=== PATIENT | male | born 1990 | race Two or more races ===

== ENCOUNTER 2021-06-03 22:32 | Emergency (ER) | payer MEDICAID ==
[~2021-06-03] VITALS: Ht 152.4 cm; Wt 59.3 kg
[2021-06-03] MEDS ORDERED: NEOMY/BACITR/POLYMYXIN OINT PACKET. TP ONE (23:45)
[2021-06-03] MEDS ORDERED: LIDOCAINE 2%/EPI 1:100,000 20 ML VIAL. INJ ONE (23:45)
--- NOTE | 2021-06-03 23:57 | PHYS DOC ---
Past Medical History Past Medical History: No Pertinent History Past Surgical History: No Surgical History Smoking Status: Current Every Day Smoker Alcohol Use: None Drug Use: None General Adult EDM: Chief Complaint: LACERATION/AVULSION HPI: HPI: Patient is a 31 year old male who presents to the ED with 3cm horizontal laceration on his left wrist. Patient does not speak Welsh and his significant other offered to translate. Patients SO states that the patient cut himself with a supervisor transferring and boxing while he was crafting slingshots and does not have any other associated symptoms. Review of Systems: Review of Systems: Constitutional: Denies fever or chills Integument: 3inch horizontal laceration left wrist, no rashes noted Complete systems were reviewed and found to be within normal limits, except as documented in this note. Heart Score: C/O Chest Pain: N/A Current Medications: Current Medications Medications (Trade) Dose Ordered Sig/Harrison Start Time Stop Time Status Last Admin Dose Admin Lidocaine/ Epinephrine (LIDOCAINE 2%-EPI 1:100,000 multi-dose) 20 ml 1X ONCE 06/03/21 23:45 06/03/21 23:46 DC Neomycin/ Polymyxin/ Bacitracin (Triple Antibiotic Ointment) 1 pkt 1X ONCE 06/03/21 23:45 06/03/21 23:46 DC Nifedipine (Procardia Xl) 30 mg 1X ONCE 06/04/21 00:00 06/04/21 00:01 Allergies: Allergies: Allergies Coded Allergies Type Severity Reaction Last Updated Verified No Known Drug Allergies 06/03/21 No Physical Exam: PE: Constitutional: Well developed, well nourished, patient is in significant pain, non-toxic appearance HENT: Normocephalic, atraumatic Eyes: conjunctiva normal, no discharge Neck: Normal range of motion, no tenderness, Lungs & Thorax: No respiratory distress, equal chest rise and fall Abdomen: Soft, no tenderness Skin: warm, dry, no rash Extremities: 3 inch laceration on left wrist, limited ROM, neurovascular function intact, tender to palpation Neurologic: Alert and oriented X 3, no focal deficits noted Psychologic: Affect normal, judgment normal Current Patient Data: Vital Signs: Vital Signs Date Time Temp Pulse Resp B/P (MAP) Pulse Ox O2 Delivery O2 Flow Rate FiO2 06/03/21 23:25 97.9 80 16 138/89 (105) 99 Room Air 97.9 EKG: EKG: [] Radiology/Procedures: Radiology/Procedures: [] Course & Med Decision Making: Course & Med Decision Making Patient presented to the ED with a 3inch laceration on his left wrist. Wound was cleaned, anesthetized and sutured appropriately. Bandage, antibiotic ointment and tetanus vaccine were applied /administered. Patient stable for discharge with outpatient follow-up with PCP. Discussed findings and plan with patient, who acknowledges understanding and agreement. Margarita Disclaimer: Margarita Disclaimer: This electronic medical record was generated, in whole or in part, using a voice recognition dictation system. Laceration/Wound Repair Progress Verbal consent obtained. Time out performed. Hand hygiene utilized. Wound cleaned with ChloraPrep. Anesthesia obtained via a 25-gauge hypodermic needle with 7.5 mL's of lidocaine 2% with epinephrine. Copious irrigation performed. Wound well approximated with 11 sutures. Patient tolerated procedure well and without difficulty. Empiric antibiotic ointment applied prior to sterile dressing. Departure Departure Impression: Primary Impression: Laceration of hand Qualified Codes: S61.412A - Laceration without foreign body of left hand, initial encounter Disposition: HOME / SELF CARE / HOMELESS Condition: STABLE Referrals: UNKNOWN PCP NAME (PCP) Patient Instructions: Laceration Care, Adult, [id number] Additional Instructions: Do not soak your wound. You may shower. Clean wound daily with soap and water. Change dressing 2 times daily. Use over the counter antibiotic ointment with each dressing change. Sutures need to be removed in 10 days. Present to your family doctor or local urgent care for removal. You may also present to the ED but it will be an additional visit/charge. After suture removal you may use Vitamin E ointment to soften the wound and prevent scarring. Use [id number] ibuprofen and or Tylenol for pain or discomfort. SEA GUSTAFSON DO Jun 03, 2021 23:57
[2021-06-04] MEDS ORDERED: DIPHTH,PERTUSS(ACELL),TET TOX 0.5 ML DISP.SYRIN. VAX IM ONE (01:00)
[2021-06-04 01:40] VITALS: BP 143/79
== END 2021-06-04 01:45 | disposition home or self-care (01) ==
LOC: ER 22:32
DX: S61.512A Laceration without foreign body of left wrist, initial encounter (principal); F17.200 Nicotine dependence, unspecified, uncomplicated; Y28.8XXA Contact with other sharp object, undetermined intent, initial encounter; Y93.89 Activity, other specified; Y92.89 Other specified places as the place of occurrence of the external cause; Y99.8 Other external cause status
CPT/HCPCS: 12004; 90471; 90715; 99283; J3490